=== PATIENT | female | born 1985 | race African-American/Black ===

== ENCOUNTER 2017-10-05 06:23 | Outpatient (CLI) | payer MEDICAID ==
[2017-10-05 08:40] VITALS: BP 107/59
== END 2017-10-05 09:11 | disposition home or self-care (01) ==
LOC: TRG 06:23
PROVIDERS: ATTEND Obstetrics & Gynecology
DX: O47.1 False labor at or after 37 completed weeks of gestation (principal); Z3A.40 40 weeks gestation of pregnancy
CPT/HCPCS: 59025

== ENCOUNTER 2017-10-05 14:13 | Inpatient (IN) | payer MEDICAID ==
[2017-10-05] MEDS ORDERED: BRETHINE SUB-Q PRN (14:32)
[2017-10-05] MEDS ORDERED: XYLOCAINE 2% INFILTRATI ONE (14:32)
[2017-10-05] MEDS ORDERED: MINERAL OIL PO PRN (14:32)
[2017-10-05] MEDS ORDERED: ePHEDrine SULFATE IV PRN (14:32)
[2017-10-05] MEDS ORDERED: BRETHINE IVP PRN (14:32)
--- NOTE | 2017-10-05 14:39 | History and Physical Report ---
History of Present Illness Date of examination: 10/05/17 Date of admission: 10/05/17 14:13 Chief complaint: Contractions History of present illness: Patient is a 32 year old , LMP 12/16/16, EDC 10/02/17 who is at 40 weeks and 4 days gestation who presented to triage complaining of contractions since about 5 AM. She reports good movement. In triage, she spontaneously ruptured and felt like pushing. Patient was rushed into a room where she was found to be fully dilated and the head was at the introitus. Past History Past Medical History: no pertinent history Past Surgical History: no surgical history - Obstetrical History Expected Date of Delivery: 10/02/17 Actual Gestation: 40 Week(s) 3 Day(s) : 3 Para: 2 Spontaneous Abortions: 1 Number of Living Children: 2 #1 Gender: Male year: 2,[birth year] Birthweight: 3.062 kg Method of Delivery: Vaginal Gestational age at delivery: 39 Complications: none #2 Gender: Male year: 2,[birth year] Birthweight: 3.033 kg Method of Delivery: Vaginal Gestational age at delivery: 40 Medications and Allergies Allergies Allergy/AdvReac Type Severity Reaction Status Date / Time No Known Allergies Allergy Unverified 11/25/13 03:50 Home Medications Medication Instructions Recorded Confirmed Last Taken Type Vits96/Iron Fum/Folic 1 tab PO DAILY 11/25/13 11/25/13 11/24/13 23:00 History [ Tablet] 1 tab - Vital Signs Vital signs: Vital Signs Pulse BP 80 102/51 10/05/17 14:28 10/05/17 14:28 Temp Pulse Resp BP Pulse Ox 80 102/51 10/05/17 14:28 10/05/17 14:28 - Physical Exam Cardiovascular: Normal S1, Normal S2 Lungs: Positive: Clear to auscultation Vulva: both: normal Deep Tendon Reflex Grade: Normal +2 - Obstetrical Uterine Contraction Monitor Mode: External Uterine Contraction Pattern: Regular Uterine Contraction Intensity: Strong/Firm Results All other labs normal. Assessment and Plan - Patient Problems (1) 40 weeks gestation of Current Visit: Yes Status: Acute (2) Active labor at term Current Visit: Yes Status: Acute Plan to address problem: Admit to labor floor. Routine admitting labs. monitoring. Anticipate . (3) Post-dates Current Visit: Yes Status: Acute
--- NOTE | 2017-10-05 14:47 | Procedure Note ---
OB Delivery Note - Delivery Date of Delivery: 10/05/17 Surgeon: GRETCHEN PENA Estimated blood loss: 100cc - Vaginal Intrapartum events: foul smelling fluid, precipitous labor- <3hr, other(please specify) (Meconium) Delivery induction: none Delivery monitor: external FHT Route of delivery: Delivery placenta: spontaneous Delivery cord: 3 umbilical vessels Episiotomy: none Delivery laceration: none Anesthesia: none Delivery comments: Patient was found to be fully dilated in the triage area. She delivered a live female from an SANJEEV position at 2:21 PM with Apgars as per peds. Bulb suction of the mouth and nose was performed, the cord was clamped x 2 and cut and the infant was handed off to the waiting cdl instructor. Cord blood was collected. The placenta was delivered manually and it was complete with a 3- vessel cord. No episiotomy was given, no laceration was sustained. EBL was about 150 cc. There was meconium amniotic fluid. The patient remains stable. Baby weight as per peds.
[2017-10-05] MEDS ORDERED: LACTATED RINGERS 1,000 ML IV SCH (15:00)
[2017-10-05] MEDS ORDERED: PITOCin/NS 30 UNIT/500ML 30 UNITS/500 ML BAG IV SCH (15:00)
[2017-10-05] MEDS ORDERED: PITOCin/NS 20 UNIT/1000ML DRIP 20 UNITS/1,000 ML BAG IV SCH (15:00)
[2017-10-05] MEDS ORDERED: MILK OF MAGNESIA PO PRN (15:51)
[2017-10-05] MEDS ORDERED: BENADRYL PO PRN (15:51)
[2017-10-05] MEDS ORDERED: ZOFRAN IV PRN (15:51)
[2017-10-05] MEDS ORDERED: LANSINOH TP PRN (15:51)
[2017-10-05] MEDS ORDERED: PHENERGAN PR PRN (15:51)
[2017-10-05] MEDS ORDERED: PHENERGAN PO PRN (15:51)
[2017-10-05] MEDS ORDERED: DULCOLAX PR PRN (15:51)
[2017-10-05] MEDS ORDERED: TUCKS PAD TP PRN (15:51)
[2017-10-05] MEDS ORDERED: PERCOCET 5/325 PO PRN (15:51)
[2017-10-05] MEDS ORDERED: TYLENOL PO PRN (15:51)
[2017-10-05] MEDS ORDERED: SODIUM CHLORIDE FLUSH SYRINGE 10 ML IV NR (16:00)
[2017-10-05 20:32] LABS: Hematocrit 39.4 % (30.3-42.9); Hemoglobin 13.4 gm/dl (10.1-14.3); Mean Corpuscular HGB Conc 34 % (30-34); Mean Corpuscular Hemoglobin 32 pg (28-32); Mean Corpuscular Volume 93 fl (79-97); Platelet Count 164 K/mm3 (140-440); Red Blood Count 4.23 M/mm3 (3.65-5.03); Red Cell Distribution Width 13.6 % (13.2-15.2)
[2017-10-05] MEDS: COLACE PO SCH (23:42)
[2017-10-05] MEDS: MOTRIN PO SCH (23:43)
[2017-10-06] MEDS: MOTRIN PO SCH ×4 (05:17→21:32)
[2017-10-06] MEDS ORDERED: BOOSTRIX IM ONE (06:00)
[2017-10-06 07:53] LABS: Hematocrit 39.4 % (30.3-42.9); Hemoglobin 13.3 gm/dl (10.1-14.3)
[2017-10-06] MEDS: COLACE PO SCH ×2 (10:19→21:34)
[2017-10-06] MEDS: PRENATAL VITAMIN PO SCH (10:19)
--- NOTE | 2017-10-06 11:40 | Progress Note ---
Assessment and Plan A: PP Day #1 Stable P: Follow Routine Orders D/C home in the AM Depo Provera 150mg IM prior to discharge D/C Home in the AM RTO in 6 Weeks Subjective - Subjective Date of service: 10/06/17 Patient reports: appetite normal, voiding normally, pain well controlled, flatus , bowel movement, ambulating normally [place]: doing well, bottle feeding (and ) Objective - Vital Signs Latest vital signs: Vital Signs Temp Pulse Resp BP BP Pulse Ox 10/06/17 08:39 98.1 F 10/06/17 07:58 76 16 96/63 96 10/06/17 04:00 98.7 F 74 18 99/74 10/06/17 00:00 98.4 F 89 16 97/75 10/05/17 19:30 98.7 F 80 16 100/67 10/05/17 17:45 98.1 F 80 18 122/78 100 10/05/17 16:58 84 126/58 10/05/17 16:43 75 125/60 10/05/17 16:28 92 H 126/55 10/05/17 16:13 86 115/67 10/05/17 15:58 86 104/57 10/05/17 15:43 82 106/56 10/05/17 15:28 82 118/59 10/05/17 15:13 79 112/56 10/05/17 14:58 78 114/54 10/05/17 14:43 83 106/54 10/05/17 14:28 80 102/51 Intake and Output 10/05/17 10/06/17 10/06/17 22:59 06:59 14:59 Intake Total 500 300 Output Total 1250 Balance -750 300 Intake: Oral 200 Intake, Free Water 300 300 Output: Urine 1250 Void 1250 Other: Total, Intake Amount 200 Total, Output Amount 650 Weight 67.585 kg Estimated Blood Loss 200 - Exam Breasts: Present: normal Cardiovascular: Present: Regular rate Lungs: Present: Clear to auscultation, Normal air movement Abdomen: Present: normal appearance, soft, normal bowel sounds Uterus: Present: normal, firm, fundal height below umbilicus Extremities: Present: normal - Labs Labs: Abnormal lab results 10/05/17 Range/Units 20:16 WBC 16.8 H (4.5-11.0) K/mm3
[2017-10-06] MEDS ORDERED: DEPO-PROVERA (CONTRACEPTION) IM ONE (11:41)
--- NOTE | 2017-10-06 11:44 | Discharge Summary ---
Providers - Providers Date of Admission: 10/05/17 14:13 Date of discharge: 10/07/17 Attending physician: GRETCHEN PENA MD Primary care physician: GRETCHEN PENA MD Hospitalization Reason for admission: active labor Delivery: Episiotomy: none Laceration: none Other procedures: none complications: none Discharge diagnosis: IUP at term delivered [place] baby: female Condition at discharge: Good Disposition: DC-01 TO HOME OR SELFCARE Plan - Provider Discharge Summary Activity: routine, no sex for 6 weeks, no heavy lifting 4 weeks, no strenuous exercise Diet: routine Instructions: routine Additional instructions: [] Smoking cessation referral if applicable(refer to patient education folder for contact #) [] Refer to [facility] Booklet Call your doctor immediately for: * Fever > 100.5 * Heavy vaginal bleeding ( >1 pad per hour) * Severe persistent headache * Shortness of breath * Reddened, hot, painful area to leg or breast * Drainage or odor from incision. * Keep incision clean and dry at all times and follow doctor's instructions regarding bathing/showering - Follow up plan Follow up: GRETCHEN PENA MD [Primary Care Provider] - 6 Weeks
[2017-10-06] MEDS ORDERED: DEPO-PROVERA (CONTRACEPTION) IM NR (12:00)
[2017-10-07] MEDS: MOTRIN PO SCH ×2 (04:00→08:55)
[2017-10-07] MEDS: PRENATAL VITAMIN PO SCH (15:44)
[2017-10-07 15:47] VITALS: BP 98/74
== END 2017-10-07 16:55 | disposition home or self-care (01) | DRG 775 ==
LOC: LD 14:13 → OB 16:56
PROVIDERS: ADMIT Obstetrics & Gynecology; ATTEND Obstetrics & Gynecology
PROC: 10E0XZZ Delivery of Products of Conception, External Approach (ICD-10-PCS; principal; 2017-10-05)
DX: O62.3 Precipitate labor (principal); O77.0 Labor and delivery complicated by meconium in amniotic fluid; Z3A.40 40 weeks gestation of pregnancy; Z37.0 Single live birth; O48.0 Post-term pregnancy
CPT/HCPCS: 36415; 85014; 85018; 85027; 86592; 86850; 86900; 86901; 88307; 90471; 90715; 99211; A6250; G0463; J2590

== ENCOUNTER 2020-07-13 04:34 | Emergency (ER) | payer MEDICAID ==
[2020-07-13 06:10] LABS: Alanine Aminotransferase 29 units/L (7-56); Albumin 3.9 g/dL (3.9-5); Blood Urea Nitrogen 17 mg/dL (7-17); Calcium 8.9 mg/dL (8.4-10.2); Hemolysis Index 4
[2020-07-13 06:23] LABS: Basophils % (Auto) 0.5 % (0.0-1.8); Eosinophils # (Auto) 0.4 K/mm3 (0.0-0.4); Eosinophils % (Auto) 5.8 % (0.0-4.3); Hematocrit 39.5 % (30.3-42.9); Hemoglobin 13.4 gm/dl (10.1-14.3); Lymphocytes # (Auto) 3.4 K/mm3 (1.2-5.4); Lymphocytes % (Auto) 44.4 % (13.4-35.0); Mean Corpuscular HGB Conc 34 % (30-34); Mean Corpuscular Volume 92 fl (79-97); Monocytes # (Auto) 0.5 K/mm3 (0.0-0.8); Monocytes % (Auto) 6.1 % (0.0-7.3); Platelet Count 234 K/mm3 (140-440); Red Cell Distribution Width 12.9 % (13.2-15.2)
[2020-07-13 06:28] LABS: BUN/Creatinine Ratio 34
[2020-07-13 06:31] LABS: Bilirubin,Urine NEG (Negative); Blood,Urine SM (Negative); Color,Urine Yellow (Yellow); Mucus,Urine FEW /HPF; Protein,Urine <15 mg/dL mg/dL (Negative); Urobilinogen,Urine < 2.0 mg/dL (<2.0)
--- NOTE | 2020-07-13 08:54 | Emergency Department Report ---
HPI - General Chief Complaint: Abdominal Pain Time Seen by Provider: 07/13/20 08:48 - HPI HPI: This is a 35-year-old female presents to the emergency department with complaint of a 1 week history of lower abdominal pain. She says that it never really goes away but the intensity is variable/intermittent. Currently, at the time of my examination, the patient says that the pain is 6 out of 10 in intensity. She denies any aggravating or alleviating factors. She denies any fever, vaginal bleeding or discharge, constipation or diarrhea, rectal bleeding, dysuria. She tried some Aleve earlier in the week for her symptoms with some transient relief. He denies any past medical history. She was seen by an urgent care earlier and was instructed to come to the emergency department for further evaluation. No recent travel or sick contacts at home. ED Past Medical Hx - Past Medical History Previous Medical History?: No Hx Hypertension: No Hx Congestive Heart Failure: No Hx Diabetes: No Hx Deep Vein Thrombosis: No Hx Renal Disease: No Hx Sickle Cell Disease: No Hx Seizures: No Hx Asthma: No Hx COPD: No Hx HIV: No - Surgical History Past Surgical History?: No - Social History Smoking Status: Never Smoker Substance Use Type: None - Medications Home Medications: Home Medications Medication Instructions Recorded Confirmed Last Taken Type Vits96/Iron Fum/Folic 1 tab PO DAILY 11/25/13 10/05/17 10/04/17 08:00 History [ Tablet] ED Review of Systems ROS: Stated complaint: STOMACH PAIN Other details as noted in HPI Comment: All other systems reviewed and negative Constitutional: denies: chills, fever Eyes: denies: eye pain, vision change ENT: denies: ear pain, throat pain Respiratory: denies: cough, shortness of breath Cardiovascular: denies: chest pain, palpitations Gastrointestinal: abdominal pain. denies: nausea, vomiting, diarrhea, constipation, melena, hematochezia Genitourinary: denies: dysuria, discharge Musculoskeletal: denies: back pain, arthralgia Skin: denies: rash, lesions Neurological: denies: headache, weakness Physical Exam - Physical Exam Vital Signs: Vital Signs 07/13/20 04:38 Temperature 97.7 F Pulse Rate 72 Respiratory 18 Rate Blood Pressure 104/56 O2 Sat by Pulse 98 Oximetry Physical Exam: GENERAL: The patient is well-developed well-nourished. HENT: Normocephalic. Atraumatic. Patient has moist mucous membranes. EYES: Extraocular motions are intact. NECK: Supple. Trachea is midline. CHEST/LUNGS: Clear to auscultation. There is no respiratory distress noted. HEART/CARDIOVASCULAR: Regular. There is no tachycardia. There is no murmur. ABDOMEN: Abdomen is soft. Lower abdominal tenderness to palpation. No guarding. Patient has normal bowel sounds. There is no abdominal distention. SKIN: Skin is warm and dry. NEURO: The patient is awake, alert, and oriented. The patient is cooperative. The patient has no focal neurologic deficits. Normal speech. MUSCULOSKELETAL: There is no tenderness or deformity. There is no limitation range of motion. BACK: No CVA tenderness to palpation. ED Course Vital Signs 07/13/20 04:38 Temperature 97.7 F Pulse Rate 72 Respiratory 18 Rate Blood Pressure 104/56 O2 Sat by Pulse 98 Oximetry - Consultations Consultation #1: 07/13/20 10:42 I spoke to the general surgeon on-call, Dr Cha, regarding the patient's presentation, labs, vitals, and the CT findings of a nonvisualized appendix. She agrees that the patient appears safe for discharge home at this time but recommends return precautions be given regarding appendicitis. ED Medical Decision Making - Lab Data Result diagrams: 07/13/20 05:23 07/13/20 05:23 Lab Results 07/13/20 07/13/20 07/13/20 Range/Units 05:20 05:23 05:23 WBC 7.6 (4.5-11.0) K/mm3 RBC 4.30 (3.65-5.03) M/mm3 Hgb 13.4 (10.1-14.3) gm/dl Hct 39.5 (30.3-42.9) % MCV 92 (79-97) fl MCH 31 (28-32) pg MCHC 34 (30-34) % RDW 12.9 L (13.2-15.2) % Plt Count 234 (140-440) K/mm3 Lymph % (Auto) 44.4 H (13.4-35.0) % [place] % (Auto) 6.1 (0.0-7.3) % Eos % (Auto) 5.8 H (0.0-4.3) % Baso % (Auto) 0.5 (0.0-1.8) % Lymph # (Auto) 3.4 (1.2-5.4) K/mm3 [place] # (Auto) 0.5 (0.0-0.8) K/mm3 Eos # (Auto) 0.4 (0.0-0.4) K/mm3 Baso # (Auto) 0.0 (0.0-0.1) K/mm3 Seg Neutrophils % 43.2 (40.0-70.0) % Seg Neutrophils # 3.3 (1.8-7.7) K/mm3 Sodium 139 (137-145) mmol/L Potassium 4.2 (3.6-5.0) mmol/L Chloride 104.5 (98-107) mmol/L Carbon Dioxide 28 (22-30) mmol/L Anion Gap 11 mmol/L BUN 17 (7-17) mg/dL Creatinine 0.5 L (0.6-1.2) mg/dL Estimated GFR > 60 ml/min BUN/Creatinine Ratio 34 % Glucose 99 (65-100) mg/dL Calcium 8.9 (8.4-10.2) mg/dL Total Bilirubin 0.20 (0.1-1.2) mg/dL AST 22 (5-40) units/L ALT 29 (7-56) units/L Alkaline Phosphatase 59 (35-129) units/L Total Protein 6.8 (6.3-8.2) g/dL Albumin 3.9 (3.9-5) g/dL Albumin/Globulin Ratio 1.3 % Lipase (13-60) units/L HCG, Qual (Negative) Urine Color Yellow (Yellow) Urine Turbidity Slightly-cloudy (Clear) Urine pH 7.0 (5.0-7.0) Ur Specific [place] 1.017 (1.003-1.030) Urine Protein <15 mg/dl (Negative) mg/dL Urine Glucose (UA) Neg (Negative) mg/dL Urine Ketones Neg (Negative) mg/dL Urine Blood Sm (Negative) Urine Nitrite Neg (Negative) Urine Bilirubin Neg (Negative) Urine Urobilinogen < 2.0 (<2.0) mg/dL Ur Leukocyte Esterase Neg (Negative) Urine WBC (Auto) 1.0 (0.0-6.0) /HPF Urine RBC (Auto) 4.0 (0.0-6.0) /HPF U Epithel Cells (Auto) 14.0 H (0-13.0) /HPF Urine Mucus Few /HPF 07/13/20 07/13/20 Range/Units 05:23 05:23 WBC (4.5-11.0) K/mm3 RBC (3.65-5.03) M/mm3 Hgb (10.1-14.3) gm/dl Hct (30.3-42.9) % MCV (79-97) fl MCH (28-32) pg MCHC (30-34) % RDW (13.2-15.2) % Plt Count (140-440) K/mm3 Lymph % (Auto) (13.4-35.0) % [place] % (Auto) (0.0-7.3) % Eos % (Auto) (0.0-4.3) % Baso % (Auto) (0.0-1.8) % Lymph # (Auto) (1.2-5.4) K/mm3 [place] # (Auto) (0.0-0.8) K/mm3 Eos # (Auto) (0.0-0.4) K/mm3 Baso # (Auto) (0.0-0.1) K/mm3 Seg Neutrophils % (40.0-70.0) % Seg Neutrophils # (1.8-7.7) K/mm3 Sodium (137-145) mmol/L Potassium (3.6-5.0) mmol/L Chloride (98-107) mmol/L Carbon Dioxide (22-30) mmol/L Anion Gap mmol/L BUN (7-17) mg/dL Creatinine (0.6-1.2) mg/dL Estimated GFR ml/min BUN/Creatinine Ratio % Glucose (65-100) mg/dL Calcium (8.4-10.2) mg/dL Total Bilirubin (0.1-1.2) mg/dL AST (5-40) units/L ALT (7-56) units/L Alkaline Phosphatase (35-129) units/L Total Protein (6.3-8.2) g/dL Albumin (3.9-5) g/dL Albumin/Globulin Ratio % Lipase 27 (13-60) units/L HCG, Qual Negative (Negative) Urine Color (Yellow) Urine Turbidity (Clear) Urine pH (5.0-7.0) Ur Specific [place] (1.003-1.030) Urine Protein (Negative) mg/dL Urine Glucose (UA) (Negative) mg/dL Urine Ketones (Negative) mg/dL Urine Blood (Negative) Urine Nitrite (Negative) Urine Bilirubin (Negative) Urine Urobilinogen (<2.0) mg/dL Ur Leukocyte Esterase (Negative) Urine WBC (Auto) (0.0-6.0) /HPF Urine RBC (Auto) (0.0-6.0) /HPF U Epithel Cells (Auto) (0-13.0) /HPF Urine Mucus /HPF - Radiology Data Radiology results: report reviewed CT ABDOMEN AND PELVIS WITH CONTRAST HISTORY: lower abdominal pain. COMPARISON: None. TECHNIQUE: CT images of the abdomen and pelvis were obtained following administration of intravenous contrast. All CT scans at this location are performed using CT dose reduction for ALARA by means of automated exposure control. CONTRAST: 100 ml of intravenous contrast administered. FINDINGS: Lungs/bones: Lung bases are clear Abdomen/pelvis: Multiple hypodensities are scattered throughout the liver too small to characterize. Spleen, adrenal glands, pancreas and gallbladder appear normal. Kidneys appear normal. Uterus is heterogeneous and slightly prominent. No free fluid is seen in the abdomen or pelvis. Appendix is not definitely seen. The small bowel loops in the pelvis and lower abdomen. Urinary bladder appears normal. No acute bone findings. IMPRESSION: 1. No focal inflammatory change in the bowel loops. Appendix is not definitely visualized. No evidence for obstruction. 2. Uterus is slightly prominent and heterogeneous. No free fluid is seen. 3. Several hypodensities scattered throughout the liver too small to characterize however may represent cysts. - Medical Decision Making This patient presents to the emergency department with a 1 week history of lower abdominal pain. On examination she has some mild reproducible lower abdominal tenderness to palpation but no guarding, rebound tenderness, or peritoneal signs with heel strike. The abdomen is soft, nondistended and nontoxic in appearance. Labs have been unremarkable including CBC, metabolic panel, urinalysis, and the patient is not . CT scan of the abdomen and pelvis with IV contrast essentially shows no acute process. It was read by radiology as having a slightly enlarged and heterogenous uterus and there was no definitive visualization of the appendix. It seems lower suspicion for appendicitis. The patient is afebrile. There is no nausea with vomiting. No guarding or peritoneal signs. No leukocytosis on the labs. CT scan did not show any bowel or right lower quadrant inflammation, nor any abdominal/pelvic free fluid. Despite all this, I still spoke with the general surgeon on-call, who agrees with the plan for discharge to home with return precautions given. I did explain to the patient that she will need to return to the closest emergency department with any increased abdominal pain, development of fever, development of nausea with vomiting, or with any acute distress. She understands and agrees to the plan. Critical Care Time: No Critical care attestation.: If time is entered above; I have spent that time in minutes in the direct care of this critically ill patient, excluding procedure time. ED Disposition Clinical Impression: Lower abdominal pain Disposition: DC-01 TO HOME OR SELFCARE Is pt being admited?: No Condition: Stable Instructions: Abdominal Pain, Adult, Abdominal Pain (ED) Additional Instructions: Please follow-up with your primary care physician in the next few days. Return to the emergency department with any increased abdominal pain, development of fever, nausea with vomiting. Return to the emergency department with any worsening of your symptoms, new or concerning symptoms not addressed during this current emergency department visit, or with any acute distress. Referrals: ELMIRA BROOKS MD [Primary Care Provider] - 2-3 Days Time of Disposition: 11:22
[2020-07-13] MEDS ORDERED: SODIUM CHLORIDE 0.9% 1000 ML 1,000 ML IV ONE (09:45)
--- NOTE | 2020-07-13 10:07 | Cat Scan Report ---
CT ABDOMEN AND PELVIS WITH CONTRAST HISTORY: lower abdominal pain. COMPARISON: None. TECHNIQUE: CT images of the abdomen and pelvis were obtained following administration of intravenous contrast. All CT scans at this location are performed using CT dose reduction for ALARA by means of automated exposure control. CONTRAST: 100 ml of intravenous contrast administered. FINDINGS: Lungs/bones: Lung bases are clear Abdomen/pelvis: Multiple hypodensities are scattered throughout the liver too small to characterize. Spleen, adrenal glands, pancreas and gallbladder appear normal. Kidneys appear normal. Uterus is het erogeneous and slightly prominent. No free fluid is seen in the abdomen or pelvis. Appendix is not de finitely seen. The small bowel loops in the pelvis and lower abdomen. Urinary bladder appears normal. No acute bone findings. IMPRESSION: 1. No focal inflammatory change in the bowel loops. Appendix is not definitely visualized. No evidenc e for obstruction. 2. Uterus is slightly prominent and heterogeneous. No free fluid is seen. 3. Several hypodensities scattered throughout the liver too small to characterize however may represe nt cysts. Signer Name: Chava Garcia MD Signed: 07/13/2020 10:03 AM Workstation Name: [id number]
[2020-07-13] MEDS ORDERED: KETOROLAC 30 MG/1 ML INJ IV ONE (11:08)
[2020-07-13 12:38] VITALS: BP 100/48
== END 2020-07-13 11:45 | disposition home or self-care (01) ==
LOC: ED 04:34
DX: R10.30 Lower abdominal pain, unspecified (principal); Z79.899 Other long term (current) drug therapy
CPT/HCPCS: 36415; 74177; 80053; 81001; 83690; 84703; 85025; 96361; 96374; 99284; J1885; J7030; Q9967